=== PATIENT | male | born 1935 | race Caucasian/White ===

== ENCOUNTER → 2016-11-12 | Day surgery (SDC) | payer MEDICARE ==
[~2016-11-12] MED LIST: BUPIVACAINE/EPINEPHRINE 0.25% 50 ML VIAL ONE; LACTATED RINGER'S 1000 ML INJ 1,000 ML ONE; LIDOCAINE 1.5%/EPINEPHrine 1:200,000 PF SOLN 30 ML AMP ONE; ONDANSETRON HCL 4 MG/2 ML VIAL IV PUSH ONE; PROPOFOL 200 MG/20 ML AMP IV ONE; ceFAZolin INJ 1,000 MG VIAL ONE
--- NOTE | 2016-11-12 16:01 | TN ---
cc: AL CLEMENS M.D. DATE OF SURGERY: 11/12/2016 PREOPERATIVE DIAGNOSIS Biopsy of basal cell carcinoma located on the left upper inner scapha. POSTOPERATIVE DIAGNOSIS Biopsy of basal cell carcinoma located on the left upper inner scapha. PROCEDURE Wide local excision with frozen section and resultant defect of 2 x 2 cm. This required a fasciocutaneous preauricular flap for a secondary defect of 5-1/2 x 2-1/2 cm. SURGEON Al Clemens MD FACS ANESTHESIA LMA general plus a total of 10 ccs of 1% lidocaine with epinephrine mixed with 0.25% Marcaine at 2:1 ratio. PROCEDURE The patient was properly consented, marked, anesthetized. The skin was sterilized with Microcyn and sterile draping applied. Local anesthetic was infiltrated. Excision was carried out utilizing a 15 blade and sent to pathology with 12 o'clock suture which indeed shows no evidence of further pathology. A preauricular flap was elevated and tunneled into the defect, inset utilizing 5-0 Monocryl suture and 5-0 fast-absorbing gut. The area of the bridge was de-epithelialized in order to properly allow full heal. The primary defect of the flap was closed primarily after wide undermining utilizing 4-0 Monocryl suture and 5-0 fast-absorbing gut. Xeroform gauze and bacitracin was applied thereafter. Good viability of tissue was noted at the end of the case. Absorbent loose dressings were applied. The patient was awakened, extubated in the operating room and transferred back to the postanesthesia care unit in stable condition. No complications were appreciated. The patient tolerated the procedure fairly well. MD AICHA Segovia/HARRIETT /3:11 PM /3:28 PM [place]
== END | disposition home or self-care (01) ==
LOC: ESDC 10:58
PROVIDERS: ATTEND Plastic Surgery
DX: C44.219 Basal cell carcinoma of skin of left ear and external auricular canal (principal)
CPT/HCPCS: 00300; 11642; 15732; 88305; 88331; J0690; J2405; J3010; J7120